=== PATIENT | male | born 1980 | race American Indian/Alaskan Native ===

== ENCOUNTER 2019-02-16 11:26 | Emergency (ER) | payer OTHER ==
[2019-02-16 11:49] VITALS: BP 123/84
--- NOTE | 2019-02-16 11:49 | Emergency Department Report ---
Chief Complaint: Extremity Injury, Upper Stated Complaint: REMOVAL OF VIVIAN IN HEAD Time Seen by Provider: 02/16/19 11:45 - HPI History of Present Illness: This is a 38 y.o. male that presents for staple to scalp removed and RUE splint evaluated. Patient reports appointment with Dr. Freitas 02/27/19. - Exam Vital Signs: Vital Signs 02/16/19 11:46 Temperature 98 F Pulse Rate 97 H Respiratory 20 Rate Blood Pressure 123/84 O2 Sat by Pulse 97 Oximetry MSE screening note: Focused history and physical exam performed. Due to findings the following was ordered: ACC for further evaluation. ED Disposition for MSE Condition: Stable
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
== END 2019-02-16 14:23 | disposition home or self-care (01) ==
LOC: ED 11:26
DX: S42.402D Unspecified fracture of lower end of left humerus, subsequent encounter for fracture with routine healing (principal); S01.01XD Laceration without foreign body of scalp, subsequent encounter; Z98.890 Other specified postprocedural states; X58.XXXD Exposure to other specified factors, subsequent encounter